=== PATIENT | female | born 1945 | race Caucasian/White ===

== ENCOUNTER 2019-11-18 13:07 | Outpatient (CLI) | payer MEDICARE, OTHER, SELFPAY ==
--- NOTE | 2019-11-18 13:15 | CT_ITS ---
WS: [id number] CT CHEST, ABDOMEN AND PELVIS WITH AND WITHOUT CONTRAST HISTORY: ABNORMAL CT SCAN, ESOPHAGUS TECHNIQUE: Noncontrast CT through the abdomen. Contiguous 5 mm axial imaging performed through the est, abdomen and pelvis with IV contrast, oral contrast has been provided. Coronal and sagittal refor mats chest. Coronal and sagittal reformats through the abdomen and pelvis. All CT scans at [facility] use at least one of these dose optimization techniques: automated exposure control; mA a nd/or kV adjustment per patient size (includes targeted exams where dose is matched to clinical indic ation); or iterative reconstruction. CONTRAST: Visipaque 320; 95 mL IV. DLP: 3474.72 mGycm COMPARISON: None available. Chest CT: Lungs are clear and well aerated. No pneumonia. No pleural effusion or pericardial effusion . Mild enlargement of the heart chambers. No mediastinal or hilar adenopathy. Enlarged thyroid. RIGHT thyroid is enlarged and extends substernal. The entire thyroid is not imaged. Bilateral breast implants with heavy capsular contraction and the implants are collapsed. Small hiat al hernia. Abdomen CT: Well-rounded hypodensity in the RIGHT lobe of the liver, just to the RIGHT of the middle hepatic vein. This hypodense nodule measures 7 mm and does not enhance. There are additional benign g ranulomata. No suspicious masses or bile duct dilatation. Gallbladder is well distended. Normal size spleen with granulomata. Normal pancreas. Normal adrenal glands. Exophytic cyst from the posterior RI GHT kidney measures 1.4 cm. Additional smaller hypodensities within each kidney. No solid mass or obs truction. No adenopathy or ascites. Atherosclerosis aorta. No aneurysm. Appendix is normal. No GI tract obstruction. Extensive diverticulosis throughout the colon. Pelvic CT: Well-distended urinary bladder. Uterus and ovaries have been surgically removed. Thoracic and lumbar spondylosis. No osseous destruction. CT/CT chest abd pel wo/w con IMPRESSION: 1. Simple cyst RIGHT lobe of the liver. No solid mass. 2. Hepatic and splenic granulomata. 3. Small hiatal hernia and substernal goiter. 4. Sigmoid diverticulosis without acute diverticulitis. 5. No metastatic disease to the lungs.
--- NOTE | 2019-11-18 13:15 | CT_ITS ---
WS: [id number] CT HEAD WITH AND WITHOUT CONTRAST HISTORY: ABNORMAL CT SCAN, esophageal wall thickening. Remote history of breast cancer. TECHNIQUE: Noncontrast 2.5 mm axial images obtained from the vertex to the skull base. Additional lucia ging performed at 2.5 mm axial images status post IV contrast. Bone and soft tissue windows are revie wed. All CT scans at [facility] use at least one of these dose optimization techniques: a utomated exposure control; mA and/or kV adjustment per patient size (includes targeted exams where do se is matched to clinical indication); or iterative reconstruction. CONTRAST: Omnipaque 300; 95 mL IV. DLP: 992.04 mGy-cm. COMPARISON: None available. No acute intracranial hemorrhage, edema or midline shift. Mild chronic microvascular ischemic disease . Small lacunar infarcts versus perivascular spaces along the inferior basal ganglia. No enhancing mass or vascular malformations identified. Dural venous sinuses are normally enhancing. Visualized [place] is unremarkable. Paranasal sinuses as visualized: Clear. Mastoid air cells: Clear. Calvarium and scalp: Intact. CT/CT head wo/w con [id number] IMPRESSION: 1. No hemorrhage or enhancing mass. 2. Mild chronic ischemic disease.
[2019-11-18] MEDS: iohexol 300 mg/mL 50 mL Btl PO (13:54)
[2019-11-18 14:39] LABS: Blood Urea Nitrogen 14 mg/dL (8-23)
[2019-11-18] MEDS: iodixanol 320 mg/mL 100mL Btl IV (15:02)
== END 2019-11-18 13:08 | disposition home or self-care (01) ==
PROVIDERS: Family Provider Internal Medicine; PCP Internal Medicine; Referring Provider Internal Medicine; Visit Provider Internal Medicine
DX: I67.82 Cerebral ischemia (principal); R93.3 Abnormal findings on diagnostic imaging of other parts of digestive tract; Z85.3 Personal history of malignant neoplasm of breast; K76.89 Other specified diseases of liver; K75.3 Granulomatous hepatitis, not elsewhere classified; K44.9 Diaphragmatic hernia without obstruction or gangrene; K57.90 Diverticulosis of intestine, part unspecified, without perforation or abscess without bleeding; E04.8 Other specified nontoxic goiter
CPT/HCPCS: 70470; 71260; 74178; 82565; 84520; Q9967

== ENCOUNTER → 2019-11-27 15:35 | Outpatient (BNVA) | payer MEDICARE, OTHER, SELFPAY | PROVIDERS: Family Provider Internal Medicine; PCP Internal Medicine; Visit Provider Internal Medicine | DX: E03.9 Hypothyroidism, unspecified (principal) | CPT/HCPCS: 84443 ==

== ENCOUNTER → 2021-09-16 15:29 | Outpatient (BNVA) | payer MEDICARE, OTHER, SELFPAY | PROVIDERS: Family Provider Internal Medicine; PCP Internal Medicine; Visit Provider Internal Medicine | DX: K21.9 Gastro-esophageal reflux disease without esophagitis (principal); E78.5 Hyperlipidemia, unspecified | CPT/HCPCS: 80053; 84443 ==